=== PATIENT | male | born 1990 | race Caucasian/White ===

== ENCOUNTER 2020-09-08 23:06 | Emergency (ER) | payer SELFPAY ==
[2020-09-08] MEDS ORDERED: cefTRIAXone 1 GM, Lidocaine 1% 2.1 ML IM ONE ×2 (23:40)
--- NOTE | 2020-09-08 23:43 | EDM.PDOC ---
ED HPI GENERAL MEDICAL PROBLEM - General Chief Complaint: Skin Complaint Stated Complaint: LUMP IN INNER THEIGH Time Seen by Provider: 09/08/20 23:22 Source of Information: Reports: Patient History Limitations: Reports: No Limitations - History of Present Illness INITIAL COMMENTS - FREE TEXT/NARRATIVE: The patient presents with left groin pain and drainage. He says a few days ago he started having the pain and he thought maybe he pulled something. Yesterday he could barely move it hurt so bad. This evening he noticed a lump and now it is draining. The pain is better now. He has no fever or chills. He has no abdominal pain, rash on his penis or drainage from his penis. Onset: Gradual Duration: Day(s): Location: Reports: Other (Left groin) Quality: Reports: Sharp Severity: Mild Improves with: Reports: None Worsens with: Reports: None Associated Symptoms: Reports: No Other Symptoms Left Thigh Pain Score (Numeric/FACES): 0 - Related Data Allergies Allergy/AdvReac Type Severity Reaction Status Date / Time No Known Allergies Allergy Verified 09/08/20 23:22 Home Meds: Home Meds cephALEXin [Keflex] 500 mg PO Q6H #40 cap 09/08/20 [Rx] Past Medical History - Past Health History Medical/Surgical History: Denies Medical/Surgical History Oncologic (Cancer) History: Reports: Other (See Below) Other Oncologic History: Pt states when he was 11 years old he had a skin cancer spot removed from middle chest - Infectious Disease History Infectious Disease History: Reports: None Social & Family History - Tobacco Use Tobacco Use Status *Q: Former Tobacco User Used Tobacco, but Quit: Yes Month/Year Tobacco Last Used: 2019 - Caffeine Use Caffeine Use: Reports: Coffee, Energy Drinks, Soda, Tea - Recreational Drug Use Recreational Drug Use: No ED ROS GENERAL - Review of Systems Review Of Systems: See Below Constitutional: Reports: No Symptoms HEENT: Reports: No Symptoms Respiratory: Reports: No Symptoms Cardiovascular: Reports: No Symptoms Endocrine: Reports: No Symptoms GI/Abdominal: Reports: No Symptoms : Reports: No Symptoms Musculoskeletal: Reports: Other (abscess to left groin) ED EXAM, SKIN/RASH Exam: See Below Exam Limited By: No Limitations General Appearance: Alert, No Apparent Distress Ears: Normal External Exam Nose: Normal Inspection Head: Atraumatic, Normocephalic Neck: Normal Inspection Respiratory/Chest: No Respiratory Distress, Lungs Clear, Normal Breath Sounds Cardiovascular: Regular Rate, Rhythm, No Edema, No Murmur GI/Abdominal: Soft, Non-Tender, No Organomegaly, No Mass (Male) Exam: Other (Left groin has erythema and edema and an open draining abscess) Course - Vital Signs Last Recorded V/S: Last Vital Signs Temp 97.8 F 09/08/20 23:19 Pulse 111 H 09/08/20 23:19 Resp 18 09/08/20 23:19 BP 135/87 09/08/20 23:19 Pulse Ox 97 09/08/20 23:19 - Re-Assessments/Exams Free Text/Narrative Re-Assessment/Exam: 09/08/20 23:42 The abscess is draining. I will get him a shot of rocephin and get him on some keflex 4 times per day for 10 days. Departure - Departure Time of Disposition: 23:45 Disposition: Home, Self-Care 01 Condition: Good Clinical Impression: Abscess - Discharge Information *PRESCRIPTION DRUG MONITORING PROGRAM REVIEWED*: Not Applicable *COPY OF PRESCRIPTION DRUG MONITORING REPORT IN PATIENT PELON: Not Applicable Prescriptions: cephALEXin [Keflex] 500 mg PO Q6H #40 cap Referrals: PCP,None [Primary Care Provider] - Bc Bland MD [Physician] - 1 Week Additional Instructions: Take the keflex 4 times per day for 10 days. Take tylenol or motrin for any pain or fever. Put warm compresses on the area 3 times per day for 5 days. That will help with the healing. Clean the area with warm soapy water 2 times per day and apply some antibiotic ointment after. This may not look better for a couple days but after 3 days you should start seeing an improvement. If you do not follow up with Dr Bland one of our surgeon in [facility]. Sepsis Event Note (ED) - Evaluation Sepsis Screening Result: No Definite Risk - Focused Exam Vital Signs: Vital Signs Temp Pulse Resp BP Pulse Ox 09/08/20 23:19 97.8 F 111 H 18 135/87 97
== END 2020-09-08 23:54 | disposition home or self-care (01) ==
LOC: JD.ED 23:06
DX: L02.214 Cutaneous abscess of groin (principal); R60.0 Localized edema; Z87.891 Personal history of nicotine dependence
CPT/HCPCS: 96372; 99283; J0696